=== PATIENT | female | born 1980 | race Two or more races ===

== ENCOUNTER 2024-08-07 07:30 | Emergency (ER) | payer MEDICARE, MEDICAID, SELFPAY ==
[2024-08-07] VITALS (9 sets, daily range): BP systolic 91–135; BP diastolic 59–99; PULSE 70–102; RESP 17–20; TEMP 36.3–37; O2SAT 99–100; BMI 26.3
--- NOTE | 2024-08-07 07:37 | PC.NURSE ---
Pt. here from home to room 18 pt. laying in bed pt. states she has had nausea and vomiting X 2 days. Pt. states she is throwing up brown, pt. states she can't even keep Gatorade down. Warm blanket given to pt.
--- NOTE | 2024-08-07 07:38 | PC.NURSE ---
Pt. sticking her finger down her throat to make herself throw up, asked pt. kindly to please stop doing that. Pt. states she has to throw up and she's throwing up brown.
--- NOTE | 2024-08-07 07:46 | EKG_ITS ---
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
--- NOTE | 2024-08-07 08:01 | EDNOTE_ITS ---
Nausea/Vomit./Diarrhea-RME/HPI General Chief complaint: Nausea/Vomiting/Diarrhea Stated complaint: NAUSEA AND VOMITING Time Seen by Provider: 08/07/24 07:45 Arrival date/time: 08/07/24 07:30 Limitations: no limitations RME / HPI RME / HPI Narrative: Based on the provided history of present illness (HPI), here is an interpretation of the case: Chief Complaint: * BIBA (Brought in by ambulance) ? This indicates the patient was brought to the hospital for care, suggesting the condition is significant enough to require emergency medical attention. Symptoms: * Nausea and vomiting for 2 days: The patient has been experiencing gastrointestinal distress for the past 48 hours. * Diarrhea started today: New onset of diarrhea, which may indicate worsening of the condition or a new symptom. This change in symptoms (vomiting ? diarrhea) could suggest a viral gastroenteritis or another infectious process affecting the gastrointestinal tract. Past Medical History (PMH): * No past medical history: This suggests that the patient is otherwise healthy without any chronic illnesses or conditions that could complicate the current illness. Surgical History: * No surgical history: No prior surgeries, which can help rule out surgical causes of abdominal distress (e.g., adhesions, hernias, etc.). Social History: * Denies recent travel: No recent travel history, which may help exclude certain infections (e.g., travel-associated gastrointestinal illnesses). * No known sick contacts: No known exposure to individuals with similar symptoms, making infections like viral gastroenteritis or foodborne illnesses less likely to be due to close contact. * No bad food : The patient denies consuming suspicious food that could lead to food poisoning or contamination, although this doesn't rule out other causes of infectious gastroenteritis. Medication History: * No recent use of antibiotics: This is important because the use of antibiotics could predispose the patient to Clostridium difficile infection or other antibiotic-associated gastrointestinal disturbances, but this is not a factor in this case. Differential Diagnosis: * Viral Gastroenteritis (e.g., norovirus, rotavirus): The most common cause of nausea, vomiting, and diarrhea. The absence of recent travel or known sick contacts makes it less likely but not impossible. * Bacterial Gastroenteritis (e.g., Salmonella, Campylobacter, E. coli): Could cause similar symptoms. However, the lack of bad food or known sick contacts makes this less likely unless the patient consumed contaminated food or drink. * Foodborne Illness: While the patient denies bad food, foodborne pathogens (like Salmonella, norovirus, etc.) could still be a possibility. * Toxin-mediated illness (e.g., Staphylococcus aureus or Bacillus cereus): These typically cause rapid onset of vomiting but could still be a consideration. * Non-infectious causes (e.g., gastrointestinal obstruction, pancreatitis, or medication side effects) seem less likely given the lack of prior health problems, surgery, or medication use. Next Steps: * Physical Exam: A thorough physical exam would help assess for signs of dehydration, abdominal tenderness, or systemic infection. * Laboratory tests: Stool studies, electrolytes, renal function, and potentially a CBC and CMP would be useful to evaluate for signs of infection, dehydration, or electrolyte imbalances. * Supportive Care: Since this sounds like an infectious gastroenteritis, rehydration and symptomatic management (antiemetics, antidiarrheal agents) are appropriate first steps. Related Data Previous Rx's ?Medication ?Instructions ?Recorded Sulfamethoxazole/Trimethoprim DS * 1 tab PO BID #20 tabs 01/31/17 (BACTRIM DS *) ondansetron HCl 8 mg tablet 8 mg PO BID 5 days #10 tabs 08/07/24 Allergies Allergy/AdvReac Type Severity Reaction Status Date / Time NKA* Allergy Uncoded 01/31/17 12:36 ED Exam General Limitations: Present no limitations General appearance: Present alert Head Head exam: Present atraumatic ENT ENT exam: Present normal exam Respiratory Respiratory exam: Present normal lung sounds bilaterally Cardiovascular Cardiovascular exam: Present regular rate and normal heart sounds Abdominal Exam Abdominal exam: Present soft and hyperactive bowel sounds Rectal Exam Rectal exam: Present deferred Back Exam Back exam: Present normal inspection Neurological Exam Neurological exam: Present alert, CN II-XII intact and normal gait Psychiatric Psychiatric exam: Present normal affect and normal mood Skin Skin exam: Present warm and dry Course Quality Measures none Orders Category Date Time Status EKG (ED ONLY) *Do not use* NOW Care 08/07/24 07:46 Completed Insert IV STAT Care 08/07/24 07:46 Active NPO STAT Care 08/07/24 07:46 Active EKG (ED Only) Stat Exams 08/07/24 07:46 Draft ABG [Arterial Blood Gas] Stat Lab 08/07/24 11:31 Completed CBC Stat Lab 08/07/24 08:10 Completed Comprehensive Metabolic Panel Stat Lab 08/07/24 08:10 Results Lipase Stat Lab 08/07/24 08:10 Results Magnesium Stat Lab 08/07/24 08:10 Results Troponin I Stat Lab 08/07/24 08:10 Results Urinalysis Stat Lab 08/07/24 11:19 Completed Morphine Inj Med 08/07/24 07:47 Discontinued 5 mg IVP X1 ONE Ondansetron Inj [Zofran Inj] Med 08/07/24 07:48 Discontinued 4 mg IV X1 ONE Vital Signs Vital signs: Vital Signs Temperature 97.8 F 08/07/24 07:40 Pulse Rate 89 08/07/24 07:40 Respiratory Rate 18 08/07/24 07:40 Blood Pressure 122/99 H 08/07/24 07:40 Pulse Oximetry (%) 100 08/07/24 07:40 Oxygen Delivery Method Room Air 08/07/24 07:40 Nausea/Vomiting/Diarrhea MDM Narrative MDM Narrative:: Patient's minimally elevated WBC is secondary to demargination secondary to dry heaves. Patient feels much better here in the emergency department. Reports only 1 time she noted streaks of blood after dry heaving, which is consistent with Edel-Henry. Her low CO2 on the blood work was secondary to hyperventilation. Patient was allowed to settle for a while and an ABG was done, which showed her condition has improved. Patient data External records reviewed:: [facility] previous records Clinical information provided by:: patient, EMS and family Social determinants that could affect healthcare access:: none Patient has the following chronic illnesses:: None How is presenting disease/condition affected by chronic disease/condition?: no chronic disease Evaluation data The following diagnostics were reviewed and interpreted by me:: lab results and EKG tracing(s) Lab and/or radiology exams considered but not ordered:: See MDM above Interpretation Summary: As noted Medications / Prescriptions Medications / Prescriptions considered but not ordered:: Not applicable Medication administrations:: Medication Administration History Discontinued Medications Morphine Sulfate (Morphine Sulf Inj 10 Mg/Ml Vial) 5 mg IVP X1 ONE Stop: 08/07/24 07:48 Last Admin: 08/07/24 08:23 Dose: 5 mg Documented By: ED Ondansetron HCl (Ondansetron Inj 2 Mg/Ml Inj 2 Ml) 4 mg IV X1 ONE; Protocol Stop: 08/07/24 07:49 Last Admin: 08/07/24 08:20 Dose: 4 mg Documented By: ED As noted Consultations Consultation(s) initiated? (list below): No Diagnosis Nausea Differential Diagnosis: food poisoning, gastroenteritis and dehydration Most likely diagnosis given after review of the tests above:: Acute gastroenteritis Admission Indicated Admission indicated?: not indicated Admission Request Was there a request for admission?: No Disposition Plan Disposition Plan: Discharge Discharge Attestation Discharge Attestation: The patient and all family members were given an opportunity to ask questions and understood the discharge instructions. Discharge instructions specifically effects, indications for sooner follow up or return to the emergency department, and the expected course of current diagnosis. Patient condition: Stable Discharge Plan Plan Patient Disposition: HOME (Self Care) Patient condition on transfer: Stable Prescriptions/Referrals Prescriptions/Med Rec: New ondansetron HCl 8 mg tablet 8 mg PO BID 5 Days Qty: 10 0RF No Action Sulfamethoxazole/Trimethoprim DS * (BACTRIM DS *) 1 TAB tablet 1 tab PO BID Qty: 20 0RF Referrals: No Primary/Family,Physician [Primary Care Provider] - In 1 week Problem List Clinical Impression: Gastroenteritis Patient/Caregiver Discharge Instructions Discharge Activity: activity as tolerated Education Materials: ED Gastroenteritis, Noninfectious Print Language: Turkish Stand Alone Forms: Rachelle Award Info., Patient Portal Info Letter Laboratory/Diagnostics Laboratory 08/07/24 08:10 08/07/24 08:10
[2024-08-07] MEDS: ONDANSETRON INJ 2 MG/ML INJ 2 ML 4 MG IV (08:20)
[2024-08-07] MEDS: MORPHINE SULF INJ 10 MG/ML VIAL 5 MG IVP (08:23)
[2024-08-07 08:37] LABS: Basophils # (Auto) 0.1 Thou/mm3 (0.0-0.2); Basophils % (Auto) 1 % (0-2.5); Eosinophils # (Auto) 0.1 Thou/mm3 (0.0-0.5); Eosinophils % (Auto) 0 % (0-10); Hematocrit 51.1 % (36.0-46.0); Hemoglobin 18.2 g/dL (12.0-16.0); Immature Granulocytes % (Auto) 1 % (0-0); Immature Granulocytes Auto 0.11 Thou/mm3 (0.00-0.00); Lymphocytes % (Auto) 5 % (10-50); Mean Corpuscular HGB Conc 35.6 g/dl (31.0-37.0); Mean Corpuscular Hemoglobin 32.4 pg (25.0-35.0); Mean Corpuscular Volume 91 fL (80-100); Monocytes # (Auto) 0.7 Thou/mm3 (0.0-0.8); Monocytes % (Auto) 3 % (0-12); Neutrophils # (Auto) 18.3 Thou/mm3 (1.8-7.7); Neutrophils % (Auto) 90 % (37-80); Nucleated Red Blood Cell % 0 /100 WBC (0); Platelet Count 291 Thou/mm3 (140-440); RDW Standard Deviation 41.1 fL (36.4-46.3); Red Blood Count 5.61 Miln/mm3 (4.00-5.20); White Blood Count 20.3 Thou/mm3 (3.6-11.0)
[2024-08-07 09:00] LABS: Alanine Aminotransferase 66 U/L (10-49); Albumin, Serum 5.6 gm/dL (3.5-5.0); Albumin/Globulin Ratio 1.6 (1.2-2.2); Alkaline Phosphatase 57 U/L (46-116); Anion Gap 24 (7-16); Aspartate Amino Transferase 73 U/L (0-34); BUN/Creatinine Ratio 12 Ratio (12-20); Blood Urea Nitrogen 11 mg/dL (9-23); Calcium 10.8 mg/dL (8.3-10.6); Calcium (Corrected) 10.8 mg/dL (8.5-10.1); Chloride 98 mMol/L (98-107); Creatinine (Component) 0.9 mg/dL (0.6-1.3); Estimated Creatinine Clearance 59.1 mL/min (>60); Globulin 3.4 gm/dL (2.3-3.5); Glucose 187 mg/dL (74-106); Lipase 41 U/L (12-53); Magnesium 2.2 mg/dL (1.6-2.6); Osmolality,Calculated 274 (275-295); Potassium 3.6 mMol/L (3.4-5.1); Sodium 135 mMol/L (136-145); Troponin I < 0.002 ng/mL (0.0-0.045); eGFR > 60 See Note
[2024-08-07 09:07] LABS: Carbon Dioxide 12.9 mMol/L (20.0-31.0)
[2024-08-07 11:32] LABS: Collection Type, Urine Clean Catch
[2024-08-07 11:40] LABS: Base Excess -11 (-3-3); HCO3 13 mEq/L (20-26); Inspired Oxygen, FIO2 21 %; O2 Saturation 98 % (91-98); PCO2 27 mmHg (32.0-48.0); PO2 106 mmHg (83-108)
[2024-08-07 11:54] LABS: Bilirubin,Urine Negative (Negative); Blood,Urine 1+ (Negative); Clarity,Urine Clear (Clear/Hazy); Color,Urine Lt-Yellow (Lt Yel-Yel); Glucose, Urine Negative (Negative); Hyaline Casts,Urine < 1 /hpf (0-1); Ketones,Urine 4+ (Negative); Leukocyte Esterase,Urine Negative (Negative); Nitrite,Urine Negative (Negative); PH,Urine 5.5 (5.0-7.0); Protein,Urine 1+ (Neg - Trace); RBC,Urine 6 /hpf (0-3); Specific Gravity,Urine 1.021 (1.001-1.035); Squamous Epithelial Cell,Urine 3 /hpf (0-5); Urobilinogen,Urine Negative mg/dL (0.0-1.0); WBC,Urine 4 /hpf (0-5)
[2024-08-07 11:59] LABS: Allen Test Performed/OK; Puncture Site Left Radial
[2024-08-07 12:24] LABS: Bilirubin,Total 1.8 mg/dL (0.3-1.2)
[2024-08-07] MEDS: ONDANSETRON INJ 2 MG/ML INJ 2 ML 8 MG IV (13:24)
[2024-08-07] MEDS: SODIUM CHLORIDE 0.9% 1000 ML 1,000 ML 999 ML IV ×2 (13:31→23:21)
[2024-08-07] MEDS: KETOROLAC INJ 30 MG/ML VIAL IVP (14:39)
--- NOTE | 2024-08-07 16:10 | XR_ITS ---
Examination: Abdomen sonogram, Limited Date and time of exam: August 07, 2024 at 1654 hrs. Indications: Right upper abdominal pain with vomiting blood today Technique: Real-time lugo scale transabdominal sonographic images of the upper abdomen obtained. Findings: Normal gallbladder Normal common bile duct 0.4 cm Pancreatic head 2.0 cm Liver 15.4 cm fatty liver no focal liver lesions Normal hepatopedal portal venous flow Patent IVC Impression: Normal gallbladder Fatty liver
--- NOTE | 2024-08-07 18:38 | XR_ITS ---
Examination: CT abdomen with intravenous contrast CT pelvis with intravenous contrast 2-D coronal reconstructions 2-D sagittal reconstructions Date and time of exam:August 07, 2024 1034 hrs. Indications: Nausea vomiting abdominal pain today Comparison: May 20, 2012. CTDI: vol (mGy) 8.13 DLP: (mGycm) 348 Technique: Multiple axial sections of the abdomen and pelvis have been obtained. 64 slice high-resolution scanner used. 3 mm axial sections have been obtained, post intravenous injection 60 cc [id number] 2-D sagittal, coronal reconstructions obtained. Low dose protocols were performed. One or more of the following dose reduction techniques were used; automated exposure control, adjustment of the mA and/or KV according to patient size, use of iterative reconstruction technique. Findings: No focal liver or splenic lesions No gallstones No pancreatic or adrenal mass No renal or ureteral calculi, no hydronephrosis Aorta normal size Appendix not visualized No bowel obstruction or diverticulitis Intrauterine device satisfactory position Involuting 12 mm left ovarian follicular cyst Urinary bladder intact The osseous structures are intact Impression: No renal or ureteral calculi, no hydronephrosis No bowel obstruction 12 mm left ovarian involuting follicular cyst
[2024-08-07] MEDS: HYDROmorphone INJ 2 MG/ML VIAL 1 MG IVP (18:56)
[2024-08-07] MEDS: PIPER/TAZO INJ 3.375 GM in SODIUM CHLORIDE 0.9% (P) 50 ML IV (19:07)
[2024-08-07 19:15] LABS: Sed Rate (ESR) 35 mm/hr (0-20)
[2024-08-07 19:16] LABS: Lactate (Lactic Acid) 1.5 mMol/L (0.4-2.0)
[2024-08-07 19:36] LABS: C-Reactive Protein 0.9 mg/dL (0.0-0.9)
[2024-08-07] MEDS: ALBUTEROL INH 8 GM 2 PUFF INH (20:52)
[2024-08-07 22:09] LABS: HCG Qualitative,Urine Negative
[2024-08-07] MEDS: METOCLOPRAMIDE INJ 5 MG/ML VIAL 2 ML 10 MG IVP (23:17)
--- NOTE | 2024-08-08 00:17 | EDNOTE_ITS ---
Emergency Room Addendum Addendum Narrative: I took over the care from Dr. Dao at 6 PM on 08/07/2024, see his notes for complete H&P and ED course. I reviewed all diagnostic test results. At this point, diagnoses include severe gastroenteritis. Treatment here included IV fluid and Zofran and Reglan and pain management and antibiotics. Significant improvement noted subjectively and objectively. Recommended a trial of outpatient treatment. Based on my best medical judgment, made decision no further evaluation or treatment indicated at this time. Patient understands and agrees to the discharge instructions customized and printed, see below. Discharge Instructions from Dr. Aparicio: 1. After evaluation, you have stomach flu.? See attached handout on gastroenteritis. 2. Take Cipro and Flagyl to kill the germs causing the infection. 3. Your job is to stay hydrated.? Zofran and Reglan for nausea/vomiting.? Increase oral fluid and maintain clear urine.? If dark or yellow, increase oral fluid. And Tylenol with codeine for severe pain. 4. Do not take any medications to stop your diarrhea.? But try to replenish the fluid and electrolytes you are losing. 5. Some good choices are water (but not only water because it will cause electrolyte abnormalities), sports drinks like Gatorade (with less sugar content), coconut water, chicken stock, and other fluid with electrolytes (like Pedialyte). 6. See your private doctor on 08/09/2024 for recheck. Ask for help until you are completely better. Ask to review all test results and official radiology reports, to make sure you receive all necessary follow-ups and monitoring. To make sure there is no serious intra-abdominal condition, ask for help with more investigation not available here in the ER. Such as EGD or scoping the stomach, colonoscopy or scoping the colon, and referral to see narrow gauge engineer. 7. Seek immediate medical care with worsening or with any concerns. Ole Aparicio MD
[2024-08-08] MEDS: metroNIDAZOLE/NS 500 MG IVPB 500 MG/100 ML BAG 200 MG IV (00:21)
[2024-08-08] MEDS: LEVOFLOXACIN/D5W 250MG IVPB 250 MG/50 ML BAG 50 MG IV (00:58)
[2024-08-08 01:56] VITALS: BP 117/89; PULSE 88; RESP 16; TEMP 36.8; O2SAT 99
[2024-08-16 06:49] LABS: Prolactin* 17.3 ng/mL
== END 2024-08-08 01:55 | disposition home or self-care (01) ==
PROVIDERS: Emergency Medicine; Emergency Provider Emergency Medicine
DX: K52.9 Noninfective gastroenteritis and colitis, unspecified (principal); R94.31 Abnormal electrocardiogram [ECG] [EKG]
CPT/HCPCS: 36415; 36600; 74177; 76705; 80053; 81001; 81025; 82803; 83605; 83690; 83735; 84146; 84484; 85025; 85652; 86140; 87040; 93005; 94640; 96361; 96365; 96367; 96375; 96376; 99285; A4649; J1885; J1956; J2270; J2405; J2543; J2765; J3490; J7030; J7050; Q9967; A9270; J1836